=== PATIENT | male | born 1990 | race Caucasian/White ===

== ENCOUNTER → 2018-03-15 | Outpatient (CLI) | payer OTHER ==
[~2018-03-15] MED LIST: CYCL10TA29 PO; IBUP800T37 PO; LOR5/325 PO
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
== END ==
LOC: RAD 10:03
PROVIDERS: ATTEND Pediatrics Adolescent Medicine
DX: S29.9XXA Unspecified injury of thorax, initial encounter (principal); R07.89 Other chest pain
CPT/HCPCS: 71100

== ENCOUNTER → 2018-12-25 | Outpatient (CLI) | payer OTHER ==
--- NOTE | 2018-12-25 16:57 | RADIOLOGY IMAGING REPORT ---
FACILITY: [facility] - [place] PATIENT NAME: Oneal Pan : 1990 MR: [id number] V: [id number] EXAM DATE: ORDERING PHYSICIAN: KAY GARCIA TECHNOLOGIST: Location: [facility] Patient: Oneal Pan : 1990 Visit/Account:[id number] Date of Sevice: 12/25/2018 XR WRIST 3 OR MORE VIEWS LT Given history: Medial wrist pain. Fall three days previously. COMPARISON STUDIES: NONE FINDINGS: Osseous structures: Intact without evidence of fracture . Joints: normal . Soft tissues: normal . IMPRESSION: Negative exam. Report Dictated By: Kj Wick MD at 12/25/2018 4:52 PM Report E-Signed By: Kj Wick MD at 12/25/2018 4:53 PM WSN:[id number]
== END ==
LOC: RAD 15:43
PROVIDERS: ATTEND Physician Assistant
DX: M25.532 Pain in left wrist (principal)